=== PATIENT | male | born 1965 | race Caucasian/White ===

== ENCOUNTER 2023-09-28 06:57 | Day surgery (SDC) | payer BC ==
[~2023-09-28] VITALS: Ht 182.9 cm; Wt 117.9 kg
[2023-09-28] MEDS ORDERED: BUPIVACAINE /PF 0.25% 30 ML VIAL INJ ONE (08:32)
[2023-09-28] MEDS ORDERED: KETAMINE HCL IN 0.9 % NACL 50 MG/5 ML SYRINGE ONE (08:39)
[2023-09-28] MEDS ORDERED: MIDAZOLAM HCL 5 MG/5 ML VIAL ONE (08:39)
[2023-09-28 11:25] VITALS: O2SAT 96
[2023-09-28 14:52] VITALS: BP_SYST 152; PULSE 42; RESP 18; TEMP 97.1
== END 2023-09-28 11:38 | disposition home or self-care (01) ==
LOC: SDS 06:57 → SMU 06:59 → SDS 11:38
PROVIDERS: ATTEND Podiatrist Primary Podiatric Medicine
DX: R22.42 Localized swelling, mass and lump, left lower limb (principal); M79.89 Other specified soft tissue disorders; G47.30 Sleep apnea, unspecified; E66.3 Overweight; Z88.2 Allergy status to sulfonamides; Z68.35 Body mass index [BMI] 35.0-35.9, adult
CPT/HCPCS: 87081; 28043; 88304; 88341; 88342; 88361; J3490; J2250; J2704; J7120; J2001